=== PATIENT | female | born 1955 | race Caucasian/White ===

== ENCOUNTER → 2021-09-21 | Outpatient (CLI) | payer MEDICARE ==
[~2021-09-21] MED LIST: CATHETER FLUSH 10 ML SYR IV PRN; REGADENOSON 0.4 MG/5 ML SYR (LEXISCAN) IV ONE
[2021-09-21 12:48] VITALS: BP 117/86
--- NOTE | 2021-09-21 14:01 | NUCLEAR STRESS TEST ---
REGADENOSON NUCLEAR STRESS Date of procedure: 09/21/2021. Primary care provider: Unknown Admitting physician: Jeb Marmolejo Jr., MD. INDICATION: Coronary artery disease. BASELINE ELECTROCARDIOGRAM: Sinus rhythm with nonspecific intraventricular conduction delay, poor R wave progression and nonspecific T wave changes. STRESS TEST PROCEDURE: The patient was administered 0.4 mg of intravenous Regadenoson. The resting heart rate was 91 bpm and the peak heart rate was 99 bpm. The resting blood pressure was 117/86 mmHg and the minimum blood pressure was 117/86 mmHg. This represents a normal heart rate and a blunted blood pressure response to Regadenoson. The test was stopped due to the protocol. There was no chest discomfort during the test. There were no arrhythmias during the test. There were no significant stress induced electrocardiogram changes. NUCLEAR PROCEDURE: The patient was administered 11 mCi of intravenous technetium 99m Tetrofosmin at rest for the rest images. The patient was subsequently administered 32.8 mCi of intravenous technetium 99m Tetrofosmin at peak stress for the stress images. Following an appropriate wait after each injection, imaging was obtained. The images were subsequently processed and reformatted in the usual views. Gated imaging was obtained. The image quality was adequate with some degree of gastrointestinal attenuation artifact. CT attenuation correction was used as a adjunct to standard imaging. Both the corrected and uncorrected images were reviewed for interpretation. NUCLEAR RESULTS: There was a small, moderate intensity, fixed distal inferior and apical defect with no evidence of ischemia. The left ventricle was dilated with an end-diastolic volume of 154 mL and an end-systolic volume of 126 mL. There was no evidence of transient ischemic dilatation. The TID ratio was 1.07. There was severe global hypokinesis with a calculated ejection fraction of 18%. IMPRESSION: 1. Normal heart rate and a blunted blood pressure response to regadenoson. 2. There was no chest discomfort, arrhythmias, or electrocardiogram changes during the test. 3. The left ventricle was dilated. 4. There was a small, moderate intensity, fixed distal inferior and apical defect with no evidence of ischemia. 5. There was severe global hypokinesis with a calculated ejection fraction of 18%. 6. This is an abnormal result representing an overall high risk for possible future ischemic events. Certain portions of this document may have been dictated utilizing voice recognition technology. Inherent to this technology, typographical and grammatical errors may exist. As much as I am diligent to identify and correct these mistakes, some errors may remain in the document. JEB MARMOLEJO JR, MD Sep 21, 2021 14:01
--- NOTE | 2021-09-21 15:11 | Diagnostic Imaging Report ---
PROCEDURE: US carotid duplex, bilateral. TECHNIQUE: Multiple real-time grayscale images were obtained over the carotid arteries in various projections, bilaterally. Additional spectral analysis and color Doppler duplex images were also obtained. INDICATION: Coronary artery disease. History of tobacco use, diabetes and hypertension. CORRELATION STUDY: None. FINDINGS: There is rather extensive, irregular atherosclerotic plaque throughout the bilateral common carotid arteries and carotid bulbs as well as internal and external carotid arteries. There are technical limitations on this study given the extensive calcification, plaquing and shadowing. On the right, there is elevated internal carotid artery velocity of 210 cm/s which results in an ICA/CCA ratio of 2.5. On the left, there is increased velocity of 390 cm/s with an elevated ICA/CCA ratio of 6.9. Bilateral external carotid arteries are patent. Vertebral arteries have an antegrade directional flow. IMPRESSION: 1. Rather extensive scattered atherosclerotic plaquing throughout the bilateral carotid arterial systems. While calcification does limit assessment, there appears to be likely rather significant stenosis present. 2. On the left, findings could be considered severe, likely greater than 90%. 3. On the right, findings are of moderate severity, approximately 50-69% stenosis. Parameters based on the consensus panel grayscale and Doppler ultrasound criteria published September 2003, Radiology, Volume 229. DOPPLER (peak systolic velocity M/S Right Left CCA .36 357 ICA Proximal 2.1 3.9 ICA Mid 1.7 .82 ICA Distal .75 .84 RATIO 2.5 6.9 ECA .75 .60 VERT .98 .21 Report was faxed to the office of Dr. Jeb Marmolejo Jr., at 2:57 p.m., by rose. Dictated by: Dictated on workstation # [id number]
== END ==
LOC: RAD 08:25
PROVIDERS: ATTEND Internal Medicine Cardiovascular Disease
DX: I25.10 Atherosclerotic heart disease of native coronary artery without angina pectoris (principal); I65.23 Occlusion and stenosis of bilateral carotid arteries; I10 Essential (primary) hypertension; E11.9 Type 2 diabetes mellitus without complications; Z72.0 Tobacco use
CPT/HCPCS: 78452; 93017; 93306; 93880; A9502

== ENCOUNTER 2021-10-26 11:00 | Day surgery (SDC) | payer MEDICARE ==
[~2021-10-26] VITALS: Ht 158.8 cm; Wt 82.1 kg
[2021-10-26] VITALS (15 sets, daily range): BP systolic 100–143; BP diastolic 70–93
--- NOTE | 2021-10-26 08:11 | Consultation-Cardiology ---
HPI-Cardiology Cardiology Consultation: Date of Consultation 10/26/21 Date of Admission 10/26/2021 Attending Physician Jeb Marmolejo Jr, MD Admitting Physician Jeb Marmolejo Jr., MD Consulting Physician JEB MARMOLEJO JR, MD HPI: Time Seen by a Provider: 08:06 Chief Complaint: This is a history and physical. The patient presents for cardiac catheterization. Chief complaint is angina pectoris. I had the pleasure of seeing Itzel in the cardiac catheterization laboratory this morning at [facility] in [place], [place]. She is a 66-year-old female with a known history of coronary artery disease with a previous coronary stent in an unknown vessel which was performed in [place], [place] years ago. She has been having increasing exertional chest discomfort and dyspnea. She also gets chest discomfort with emotional stress. I placed her on metoprolol succinate and had her undergo a nuclear stress test. The stress test showed a fixed distal inferior and apical defect with no ischemia but severe left ventricular systolic dysfunction with a calculated ejection fraction of 18%. She continues to have exertional dyspnea and chest tightness. She has taken a few nitroglycerin which have helped. She denies paroxysmal nocturnal dyspnea, orthopnea, palpitations, or syncope. She has chronic, mild ankle edema which is unchanged. Certain portions of this document may have been dictated utilizing voice recognition technology. Inherent to this technology, typographical and grammatical errors may exist. As much as I am diligent to identify and correct these mistakes, some errors may remain in the document. Review of Systems-Cardiology Review of Systems Other comments Review of 10 organ systems is as per the history of present illness, otherwise negative. HTG-Praaic-Kaogzs Hx Patient Social History Smoking Status: Current Everyday Smoker Past Medical History PMH As described under Assessment. Family Medical History Family Medical History: The patient does not know of any family history of premature coronary artery disease in first-degree relatives. Allergies and Home Medications Allergies Coded Allergies: No Known Drug Allergies (Unverified , 10/26/21) Patient Home Medication List Home Medication List Reviewed: Yes Exam Vital Signs See chart Physical Exam General: Alert. No acute distress. Well nourished and appears stated age. Eye: Extraocular movements are intact. Conjunctivae are clear. There are no xanthelasma. HENT: Normocephalic. Atraumatic. Carotid pulsations 2/2 without bruits. Neck: Jugular venous pressure does not appear elevated. No thyromegaly appreciated. Respiratory: Lungs have diffuse inspiratory wheezes. Respirations are non- labored. Breath sounds are equal. Symmetrical chest wall expansion. Cardiovascular: Normal rate. Regular rhythm. No murmur. No gallop. Point of maximal impulse is not appear displaced. Right radial pulses not palpable. Right brachial pulse is brisk. Left radial pulses brisk.. 1+ bilateral pretibial edema without venous stasis changes. Gastrointestinal: Soft. Normal bowel sounds. Skin: Skin turgor is normal. There is no pallor. Musculoskeletal: No kyphosis or scoliosis appreciated. Neurologic: Alert and oriented to person, place, time. Cranial nerves 3-12 appear grossly intact. The patient has good motor tone strength in the upper and lower extremities bilaterally. Psychiatric: Cooperative. Appropriate mood & affect. Labs LABS (10/23/2021): Glucose 149. Sodium 140. Potassium 4.2. Creatinine 0.7. GFR 83. Hemoglobin 9. Platelets 420,000. Radiology PERTINENT TEST RESULTS (reviewed during this visit): REGADENOSON NUCLEAR STRESS TEST (09/21/2021): 1. Normal heart rate and a blunted blood pressure response to regadenoson. 2. There was no chest discomfort, arrhythmias, or electrocardiogram changes during the test. 3. The left ventricle was dilated. 4. There was a small, moderate intensity, fixed distal inferior and apical defect with no evidence of ischemia. 5. There was severe global hypokinesis with a calculated ejection fraction of 18%. 6. This is an abnormal result representing an overall high risk for possible future ischemic events. ECHOCARDIOGRAM (09/21/2021): 1. There is normal left ventricular chamber size with moderate concentric left ventricular hypertrophy. There is severe left ventricular systolic dysfunction with an estimated ejection fraction of 25-30% with global hypokinesis. 2. The left ventricular diastolic function is indeterminate. 3. The right ventricle is moderately dilated with severe systolic dysfunction. TAPSE 1.1 cm. 4. The right atrium is mildly dilated with an area of 21 cm. 5. There is mild mitral regurgitation. 6. There is mild aortic valve sclerosis with aortic annular calcification. 7. There is moderate tricuspid regurgitation. 8. There is a small circumferential pericardial effusion. There is a small right pleural effusion. 9. The inferior vena cava is dilated with decreased respiratory variation consistent with severely elevated right atrial pressure (15 mmHg). 10. The estimated pulmonary artery systolic pressure is 47 mmHg assuming a right atrial pressure of 15 mmHg. ELECTROCARDIOGRAM (09/05/2021): Sinus rhythm with left atrial abnormality, left axis deviation at -63, possible old anterior infarct with nonspecific anterolateral T wave changes and prolonged QT with a QTc of 547 ms. LABS (08/18/2021): Total cholesterol 113. HDL 31. Triglycerides 169. LDL 57. Glucose 100. Creatinine 0.73. GFR 85. Sodium 142. Potassium 4.2. Liver function tests normal. Hemoglobin 9.4. Platelet count 382,000. TSH 3.98. BNP 1016. Diagnosis/Problems Diagnosis/Problems (1) Coronary artery disease involving muscogee coronary artery with angina pectoris Assessment & Plan: Due to ongoing symptoms consistent with angina, an abnormal stress test, and severe cardiomyopathy, I will have her undergo cardiac catheterization today. We will continue the present guideline directed medical therapy. (2) Cardiomyopathy Assessment & Plan: She has severe left ventricular systolic dysfunction of on clear etiology. We will proceed with a cardiac catheterization to assess for ischemic heart disease. She is on CODY inhibitor and metoprolol succinate. At some point, I will consider adding spironolactone as an outpatient. (3) Pulmonary hypertension Assessment & Plan: Most likely due to some degree of heart failure as well as probable chronic obstructive pulmonary disease. (4) Peripheral vascular disease Assessment & Plan: I cannot palpate a right radial pulse. Her right brachial pulses normal. I will plan to perform the procedure via the left radial artery if possible. (5) Essential hypertension Assessment & Plan: Her blood pressure has been controlled on her outpatient medication. (6) Mixed hyperlipidemia Assessment & Plan: Continue statin medication. (7) Anemia Assessment & Plan: She has a mild anemia and has been taking iron under the direction of her primary provider. She is also supposed to have a colonoscopy if not already done. (8) Type 2 diabetes mellitus with complication Assessment & Plan: Metformin is on hold due to the procedure. (9) Cigarette smoker Assessment & Plan: She is working on cutting down on total number of cigarettes smoked per day. (10) Obesity Assessment & Plan: Unfortunately, she has been gaining weight as she cuts down on smoking. Unclear whether or not some of this weight gain could be due to heart failure. JEB MARMOLEJO JR, MD Oct 26, 2021 08:11
--- NOTE | 2021-10-26 08:21 | Pre-Op Note & Conscious Sedat ---
Pre-Operative Progress Note H&P Reviewed The H&P was reviewed, patient examined and no changes noted. Date H&P Reviewed: Oct 26, 2021 Time H&P Reviewed: 08:20 Pre-Op Diagnosis: Coronary artery disease with angina Conscious Sedation Pre-Proced ASA Score 2 For ASA 3 and 4: Consider anesthesia and medical clearance. Also, for patients with a history of failed moderate sedation consider anesthesia. Airway Lungs Heart ASA score ASA 1: a normal healthy patient ASA 2: a patient with a mild systemic disease (mid diabetes, controlled hypertension, obesity ASA 3: a patient with a severe systemic disease that limits activity (angina, COPD, prior Myocardial infarction) ASA 4: a patient with an incapacitating disease that is a constant threat to life (CHF, renal failure) ASA 5: a moribund patient not expected to survive 24 hrs. (ruptured aneurysm) ASA 6: a declared brain- patient whose organs are being harvested. For emergent operations, add the letter E after the classification Mallampati Classification Grade 3 Sedation Plan Analgesia, Amnesia, Plan communicated to team members, Discussed options with patient/fam, Discussed risks with patient/fam The patient is an appropriate candidate to undergo the planned procedure, sedation, and anesthesia. The patient immediately re-assessed prior to indication. CHIQUIS WAGNER JR, MD Oct 26, 2021 08:21
--- NOTE | 2021-10-26 09:39 | Cardiac Cath Report ---
CARDIAC CATHETERIZATION DATE OF PROCEDURE: 10/26/2021 INDICATION: Coronary artery disease with angina pectoris and cardiomyopathy. HISTORY: The patient is a 66 year old female with a known history of coronary artery disease with a previous stent in the mid right coronary artery that was performed in [place], [place] years ago. She has been having exertional chest discomfort and dyspnea. She has been on aspirin, clopidogrel and statin medication. I started her on beta-rodrigue and had her undergo a stress test which was performed on 09/21/2021. This showed a small, fixed distal inferior and apical defect with no evidence of ischemia. However, her ejection fraction was 18% with global hypokinesis. This is a high risk result. As such, she has now referred for further evaluation with a cardiac catheterization. PROCEDURES PERFORMED: 1. Left heart catheterization with hemodynamic measurements. 2. Diagnostic [place] coronary angiography. PROCEDURE DESCRIPTION: After informed consent and in the fasting state, left heart catheterization was performed through the left radial artery utilizing a 6 A[place] system by percutaneous approach. Standard Justin catheters were utilized for the diagnostic portion of the procedure. All catheters were exchanged over a guidewire. Following the procedure, a vascular band was applied to the radial artery access site and the sheath was removed with good hemostasis. RESULTS: HEMODYNAMICS: The aortic pressure was 122/62 mmHg. The left ventricular pressur e was 129/5 mmHg with a left ventricular end-diastolic pressure of 28 mmHg. There was no significant pressure gradient upon pullback across the aortic valve. CORONARY ANGIOGRAPHY: The coronary arteries were calcified. Left main coronary artery: There was an 80% stenosis distally with DAVID-3 flow. This formed a bifurcation lesion with the left anterior descending coronary artery and left circumflex coronary artery with a Parisi classification of 1, 1, 0. Left anterior descending coronary artery: There was an 80% stenosis in the ostium which was part of the bifurcation lesion of the left main coronary artery. There was a 70% stenosis in the mid segment with DAVID-2 flow. There was a very high diagonal branch versus a ramus intermedius branch which contai lj a long 80% stenosis in its mid segment with DAVID-2 flow. This was a moderate sized branch. Left circumflex coronary artery: There was an 80% stenosis in the ostium of a moderate sized first obtuse marginal branch with DAVID-3 flow. Right coronary artery: Dominant and there was a stent in the mid segment which was widely patent. There was a 99% stenosis distal to the stent and just proximal to a large acute marginal branch with DAVID-2 flow. IMPRESSION: 1. Severely elevated left ventricular end-diastolic pressure. 2. Severe, calcific three-vessel coronary artery disease involving the distal left main coronary artery. 3. The patient is known to have severe left ventricular systolic dysfunction with a calculated ejection fraction of 18% by nuclear stress test performed on 09/21/2021. 4. The patient will need to be referred for consideration of coronary artery bypass surgery. In the interim, I will continue the present guideline directed medical therapy and intensify her antianginal medication. Certain portions of this document may have been dictated utilizing voice recognition technology. Inherent to this technology, typographical and grammatical errors may exist. As much as I am diligent to identify and correct these mistakes, some errors may remain in the document. CHIQUIS WAGNER JR, MD Oct 26, 2021 09:39
[~2021-10-26 11:00] MED LIST changes: +ACET-2267 PO; +ASCO-262 PO; +ASPI-1238 PO; +ASPIRIN 81 MG CHEW (CHILDREN'S ASA) PO ONE; +ATOR40TA70 PO; +CHOL400T PO; +CLOP75TA28 PO; +DIPH25CA79 PO; +DULO30CA49 PO; +FERR324T4 PO; +FEXO-45 PO; +FURO20TA4 PO; +GBPN600T PO; +HEParin (CATH LAB) 2,000 ML IV ONE; +HEParin 1000 UNIT/ML (10ML VIAL) FOR BOLUS ONE; +IPRA4AER IH; +ISOS60TA63 PO; +LIDOCAINE 1% INJ 20 ML 20 ML VIAL ONE; +METF-397 PO; +MIDAZOLAM 5 MG/5 ML (VERSED) VIAL ONE; +MTP25TSR PO; +NITR0.4T39 SL; +NITRO DRIP 25000 MCG/D5W 250 ML IV ONE; +NS IV 1000 ML 1,000 ML IV ONE; +NS IV 1000 ML 1,000 ML IV SCH; +NS IV 1000 ML 1,000 ML ONE; +OMEP40CA6 PO; +OXYC1TAB11 PO; +PATIENT MAY USE OWN MEDS, ALL PO SCH; -REGADENOSON 0.4 MG/5 ML SYR (LEXISCAN) IV ONE; +SENN-234 PO; +VERAPAMIL 5 MG/2 ML (CALAN) VIAL IV ONE; +fentaNYL INJ 100 MCG/2 ML AMP ONE
== END 2021-10-26 13:30 | disposition home or self-care (01) ==
LOC: CATH 11:00 → CSD 11:26 → CATH 13:30
PROVIDERS: ATTEND Internal Medicine Cardiovascular Disease
DX: I25.119 Atherosclerotic heart disease of native coronary artery with unspecified angina pectoris (principal); I42.9 Cardiomyopathy, unspecified; I27.20 Pulmonary hypertension, unspecified; I73.9 Peripheral vascular disease, unspecified; I10 Essential (primary) hypertension; E78.2 Mixed hyperlipidemia; D64.9 Anemia, unspecified; E11.9 Type 2 diabetes mellitus without complications; F17.210 Nicotine dependence, cigarettes, uncomplicated; E66.9 Obesity, unspecified; Z68.32 Body mass index [BMI] 32.0-32.9, adult; Z95.5 Presence of coronary angioplasty implant and graft; Z79.899 Other long term (current) drug therapy
CPT/HCPCS: 93458; C1894